=== PATIENT | male | born 1975 | race Caucasian/White ===

== ENCOUNTER 2016-08-28 15:57 | Inpatient (IN) | payer OTHER ==
[2016-08-28 18:05] VITALS: BMI 20.6
--- NOTE | 2016-08-28 18:43 | HP ---
[id number]: Allergies Allergy/AdvReac Type Severity Reaction Status Date / Time No Known Allergies Allergy Verified 08/28/16 18:18 History of Present Illness: 40 YEARS OLD MALE WITH LONG HISTORY OF ALCOHOL PCP NICOTINE DEPENDENCE DENIES MEDICAL DENIES PSYCHIATRIC IS ADMITTED TO REHAB Exam Limitations: No Limitations - Ebola screening Have you traveled outside of the country in the last 21 days: No Have you had contact with anyone from an Ebola affected area: No Have you been sick,other than usual withdrawal symptoms: No Do you have a fever: No - Review of Systems Constitutional: Chills, Changes in sleep, Weight Stable EENT: reports: No Symptoms Reported Respiratory: reports: No Symptoms reported Cardiac: reports: No Symptoms Reported GI: reports: No Symptoms Reported : reports: No Symptoms Reported Musculoskeletal: reports: No Symptoms Reported Integumentary: reports: No Symptoms Reported Neuro: reports: No Symptoms reported Endocrine: reports: No Symptoms Reported Hematology: reports: No Symptoms Reported Psychiatric: reports: Judgement Intact, Orientated x3, Depressed Other Systems: Reviewed and Negative Patient History - Patient Medical History Hx Anemia: No Hx Asthma: No Hx Chronic Obstructive Pulmonary Disease (COPD): No Hx Cancer: No Hx Cardiac Disorders: No Hx Congestive Heart Failure: No Hx Hypertension: No Hx Pacemaker: No HX Cerebrovascular Accident: No Hx Seizures: No Hx Dementia: No Hx Diabetes: No Hx Gastrointestinal Disorders: No Hx Liver Disease: No Hx Genitourinary Disorders: No Hx Sexually Transmitted Disorders: No Hx Renal Disease (ESRD): No Hx Thyroid Disease: No Hx Human Immunodeficiency Virus (HIV): No Hx Hepatitis C: Yes Hx Depression: Yes Hx Suicide Attempt: No Hx Bipolar Disorder: No Hx Schizophrenia: No - Patient Surgical History Past Surgical History: No - PPD History Previous Implant?: Yes Documented Results: Negative w/o proof Implanted On Prior [facility] Admission?: No PPD to be Administered?: Yes - Smoking Cessation Smoking history: Current every day smoker Have you smoked in the past 12 months: Yes Aproximately how many cigarettes per day: 10 Cigars Per Day: 0 Hx Chewing Tobacco Use: No Initiated information on smoking cessation: Yes 'Breaking Loose' booklet given: 08/28/16 - Substance & Tx. History Hx Alcohol Use: Yes Hx Substance Use: No Substance Use Type: Alcohol Hx Substance Use Treatment: Yes - Substances Abused Alcohol Route: Oral Frequency: Daily Amount used: [id number] BEER Age of first use: 13 Date of Last Use: 08/19/16 PCP Route: Smoking Frequency: 1-3 times last 30 days Amount used: 1 "dip" Age of first use: 18 Date of Last Use: 08/19/16 Family Disease History - Family Disease History Family Disease History: CA: Mother (), Other: Father (HEPATITIS ) Admission Physical Exam [facility] - Vital Signs Vital Signs: Vital Signs - 24 hr 08/28/16 18:04 Temperature 97.7 F Pulse Rate 81 Respiratory 18 Rate Blood Pressure 123/74 - Physical General Appearance: Yes: No Apparent Distress, Appropriately Dressed, Thin HEENTM: Yes: Hearing grossly Normal, Normal ENT Inspection, Normocephalic, Normal Voice Respiratory: Yes: Chest Non-Tender, Lungs Clear, Normal Breath Sounds, No Respiratory Distress, No Accessory Muscle Use Neck: Yes: Supple, Trachea in good position Breast: Yes: Breasts Symetrical Cardiology: Yes: Regular Rhythm, Regular Rate, S1, S2 Abdominal: Yes: Non Tender, Soft Genitourinary: Yes: Within Normal Limits Back: Yes: Normal Inspection Musculoskeletal: Yes: full range of Motion, Gait Steady Extremities: Yes: Normal Inspection, Normal Range of Motion, Non-Tender Neurological: Yes: Fully Oriented, Alert, Motor Strength 5/5, Normal Response, Depressed Affect Integumentary: Yes: Warm Lymphatic: Yes: Within Normal Limits - Diagnostic (1) Alcohol dependence with uncomplicated withdrawal Current Visit: Yes Status: Acute (2) PCP dependence Current Visit: Yes Status: Chronic (3) Nicotine dependence Current Visit: Yes Status: Acute Qualifiers: Nicotine product type: cigarettes Substance use status: in withdrawal Qualified Code(s): F17.213 - Nicotine dependence, cigarettes, with withdrawal (4) Hepatitis C antibody test positive Current Visit: Yes Status: Chronic Comment: SCHEDULE TO TREAT (5) Depression (emotion) Current Visit: Yes Status: Suspected Qualifiers: Depression Type: dysthymia Qualified Code(s): F34.1 - Dysthymic disorder Cleared for Admission [facility] - Detox or Rehab [facility] Level of Care: Observation Bed Detox Regimen/Protocol: Not Applicable Claeared for Rehab Admission: Yes [facility] Breath Alcohol Content Breath Alcohol Content: 0 Urine Drug Screen - Results Drug Screen Negative: No Urine Drug Screen Results: BZO-Benzodiazepines
[2016-08-28] MEDS ORDERED: P-EPHED 60MG/TRIPROLIDI 2.5MG TABLET PO PRN (18:46)
[2016-08-28] MEDS ORDERED: MAGNESIUM HYDROX 2400MG/30ML ORAL SUSPENSION 30 ML CUP PO PRN (18:46)
[2016-08-28] MEDS ORDERED: MAGNESIUM CITRATE 300 ML BOTTLE PO PRN (18:46)
[2016-08-28] MEDS ORDERED: MENTHOL/PHENOL 1 EACH UD MM PRN (18:46)
[2016-08-28] MEDS ORDERED: MAG HYDROX/AL HYDROX/SIMETH 30 ML UNIT-DOSE CUP PO PRN (18:46)
[2016-08-28] MEDS ORDERED: guaiFENesin/D-METHORPHAN HB 10 ML UNIT-DOSE CUPS PO PRN (18:46)
[2016-08-28] MEDS ORDERED: ACETAMINOPHEN 325 MG TABLET (FP) PO PRN (18:46)
[2016-08-28] MEDS ORDERED: LOPERAMIDE HCL 2 MG CAPSULE PO PRN (18:46)
[2016-08-28] MEDS: THIAMINE HCL 100 MG TABLET (FP) PO SCH (22:21)
[2016-08-28] MEDS: diphenhydrAMINE HCL 50 MG CAPSULE PO PRN (22:21)
[2016-08-28] MEDS: NICOTINE POLACRILEX 2 MG GUM BC PRN (22:23)
[2016-08-29] MEDS: IBUPROFEN 400 MG TABLET (FP) PO PRN (06:13)
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
--- NOTE | 2016-08-29 08:24 | EKG ---
Test Reason : Blood Pressure : / mmHG Vent. Rate : 074 BPM Atrial Rate : 074 BPM P-R Int : 130 ms QRS Dur : 084 ms QT Int : 388 ms P-R-T Axes : 084 056 046 degrees QTc Int : 430 ms NORMAL SINUS RHYTHM POSSIBLE LEFT ATRIAL ENLARGEMENT SEPTAL INFARCT , AGE UNDETERMINED ABNORMAL ECG NO PREVIOUS ECGS AVAILABLE Confirmed by ERIK VARGAS MD ([id number]) on 08/29/2016 8:24:25 AM Referred By: Confirmed By:ERIK VARGAS MD
[2016-08-29] MEDS: PRENATAL VITAMINS W/ FOLIC ACID TABLET (FP) PO SCH (10:00)
[2016-08-29] MEDS: NICOTINE 14 MG/24 HOURS TOPICAL PATCH TD SCH (10:01)
[2016-08-29 10:19] LABS: URINE APPEARANCE CLEAR; URINE BILIRUBIN NEGATIVE (NEGATIVE); URINE BLOOD NEGATIVE (NEGATIVE); URINE COLOR YELLOW; URINE GLUCOSE (UA) NEGATIVE (NEGATIVE); URINE KETONE NEGATIVE (NEGATIVE); URINE LEUK ESTERASE NEGATIVE (NEGATIVE); URINE NITRITE NEGATIVE (NEGATIVE); URINE PROTEIN NEGATIVE (NEGATIVE); URINE UROBILINOGEN NEGATIVE E.U./dl (0.2-1.0)
[2016-08-29] MEDS: diphenhydrAMINE HCL 50 MG CAPSULE PO PRN ×2 (21:02→23:36)
[2016-08-29] MEDS: THIAMINE HCL 100 MG TABLET (FP) PO SCH (21:02)
[2016-08-30] MEDS: PRENATAL VITAMINS W/ FOLIC ACID TABLET (FP) PO SCH (10:00)
[2016-08-30] MEDS: IBUPROFEN 400 MG TABLET (FP) PO PRN (10:00)
[2016-08-30] MEDS: NICOTINE 14 MG/24 HOURS TOPICAL PATCH TD SCH (10:00)
[2016-08-30] MEDS: hydrOXYzine PAMOATE 50 MG CAPSULE (FP) PO PRN (21:09)
[2016-08-30] MEDS: THIAMINE HCL 100 MG TABLET (FP) PO SCH (21:09)
[2016-08-30] MEDS: NICOTINE POLACRILEX 2 MG GUM BC PRN (21:41)
[2016-08-31] MEDS: NICOTINE POLACRILEX 2 MG GUM BC PRN (06:40)
[2016-08-31] MEDS: PRENATAL VITAMINS W/ FOLIC ACID TABLET (FP) PO SCH (09:56)
[2016-08-31] MEDS: NICOTINE 14 MG/24 HOURS TOPICAL PATCH TD SCH (09:56)
[2016-08-31] MEDS: IBUPROFEN 400 MG TABLET (FP) PO PRN ×2 (11:06→23:34)
[2016-08-31] MEDS: hydrOXYzine PAMOATE 50 MG CAPSULE (FP) PO PRN ×2 (17:57→21:37)
[2016-08-31] MEDS: THIAMINE HCL 100 MG TABLET (FP) PO SCH (21:37)
[2016-09-01] MEDS: PRENATAL VITAMINS W/ FOLIC ACID TABLET (FP) PO SCH (10:01)
[2016-09-01] MEDS: NICOTINE 14 MG/24 HOURS TOPICAL PATCH TD SCH (10:02)
[2016-09-01] MEDS: hydrOXYzine PAMOATE 50 MG CAPSULE (FP) PO PRN ×4 (10:02→22:27)
[2016-09-01] MEDS: IBUPROFEN 400 MG TABLET (FP) PO PRN (14:06)
[2016-09-01] MEDS: THIAMINE HCL 100 MG TABLET (FP) PO SCH (21:48)
[2016-09-01] MEDS: NICOTINE POLACRILEX 2 MG GUM BC PRN (22:27)
[2016-09-02] MEDS: hydrOXYzine PAMOATE 50 MG CAPSULE (FP) PO PRN ×4 (10:01→22:25)
[2016-09-02] MEDS: IBUPROFEN 400 MG TABLET (FP) PO PRN ×2 (10:01→21:36)
[2016-09-02] MEDS: PRENATAL VITAMINS W/ FOLIC ACID TABLET (FP) PO SCH (10:01)
[2016-09-02] MEDS: NICOTINE 14 MG/24 HOURS TOPICAL PATCH TD SCH (10:04)
[2016-09-02] MEDS: diphenhydrAMINE HCL 50 MG CAPSULE PO PRN (21:35)
[2016-09-02] MEDS: THIAMINE HCL 100 MG TABLET (FP) PO SCH (21:37)
[2016-09-03] MEDS: hydrOXYzine PAMOATE 50 MG CAPSULE (FP) PO PRN ×2 (09:43→21:19)
[2016-09-03] MEDS: IBUPROFEN 400 MG TABLET (FP) PO PRN ×2 (09:43→17:02)
[2016-09-03] MEDS: NICOTINE 14 MG/24 HOURS TOPICAL PATCH TD SCH (09:44)
[2016-09-03] MEDS: PRENATAL VITAMINS W/ FOLIC ACID TABLET (FP) PO SCH (09:44)
--- NOTE | 2016-09-03 10:40 | PN ---
Psychiatric Progress Note Vital Signs: Vital Signs Period Temp Pulse Resp BP Sys/Tom Pulse Ox Last 24 Hr 97.3 F 78 18-18 102/66 Date of Session: 09/03/16 Chief Complaint:: Insomnia HPI: Patient addressing Alcohol and Phencyclidine Dependence comorbid with Nicotine Dependence and Substance-induced Sleep Disorder ROS: Hepatitis C Current Medications: Active Medications Generic Name Dose Route Start Last Admin Trade Name Freq PRN Reason Stop Dose Admin Acetaminophen 650 mg 08/28/16 18:46 Tylenol - PO Q4H PRN PAIN Al Hydroxide/Mg Hydroxide 30 ml 08/28/16 18:46 Mylanta Oral Suspension - PO Q6H PRN DYSPEPSIA Diphenhydramine HCl 50 mg 08/28/16 18:46 09/02/16 21:35 Benadryl - PO 50 mg HSMR1 PRN Administration INSOMNIA Eucalyptus/Menthol/Phenol/Sorbitol 1 each 08/28/16 18:46 Cepastat Lozenge - MM Q4H PRN SORE THROAT Guaifenesin 10 ml 08/28/16 18:46 Robitussin Dm - PO Q6H PRN COUGH Hydroxyzine Pamoate 50 mg 08/28/16 18:46 09/03/16 09:43 Vistaril - PO 50 mg Q4H PRN Administration AGITATION Ibuprofen 400 mg 08/28/16 18:46 09/03/16 09:43 Motrin - PO 400 mg Q6H PRN Administration SEVERE PAIN Loperamide HCl 4 mg 08/28/16 18:46 Imodium - PO Q6H PRN DIARRHEA Magnesium Citrate 300 ml 08/28/16 18:46 Citroma - PO Q48H PRN CONSTIPATION Magnesium Hydroxide 30 ml 08/28/16 18:46 Milk Of Magnesia - PO DAILY PRN CONSTIPATION Nicotine 14 mg 08/29/16 10:00 09/03/16 09:44 Nicoderm Patch - TD 14 mg DAILY [place] Administration Nicotine Polacrilex 2 mg 08/28/16 18:46 09/01/16 22:27 Nicorette Gum - BC 2 mg Q2H PRN Administration NICOTINE REPLACEMENT RX Multivit/Folic Acid/Iron 1 tab 08/29/16 10:00 09/03/16 09:44 Vitamins ([facility]) - PO 1 tab DAILY [place] Administration Pseudoephedrine/Triprolidine 1 combo 08/28/16 18:46 Actifed - PO TID PRN NASAL CONGESTION Thiamine HCl 100 mg 08/28/16 22:00 09/02/16 21:37 Vitamin B1 - PO 100 mg HS [place] Administration Trazodone HCl 100 mg 09/03/16 22:00 Desyrel - PO HS [facility] Medication(s) Change(s): Start Trazadone 100 mg po HS Current Side Effect: No Lab tests ordered: Yes Lab tests reviewed: Yes Provider note:: Patient reports experiencing difficulty to sleep. 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 Requests to be order Trazadone to which he responded well in the past Total face to face time:: 25 Mental Status Exam - Mental Status Exam Alert and Oriented to: Time, Place, Person Cognitive Function: Fair Patient Appearance: Well Groomed Mood: Hopeful, Euthymic Affect: Appropriate Patient Behavior: Cooperative Speech Pattern: Clear Voice Loudness: Normal Thought Process: Intact Thought Disorder: Not Present Hallucinations: Denies Suicidal Ideation: Denies Homicidal Ideation: Denies Insight/Judgement: Fair Sleep: Poorly Appetite: Good Muscle strength/Tone: Normal Gait/Station: Normal Psychiatric Treatment Plan - Problem List (1) Alcohol dependence with uncomplicated withdrawal Current Visit: Yes (2) Nicotine dependence Current Visit: Yes Qualifiers: Nicotine product type: cigarettes Substance use status: in withdrawal Qualified Code(s): F17.213 - Nicotine dependence, cigarettes, with withdrawal (3) Substance-induced sleep disorder Current Visit: Yes (4) Hepatitis C antibody test positive Current Visit: Yes Comment: SCHEDULE TO TREAT (5) PCP abuse Current Visit: Yes Initial treatment plan: 1) Start Trazadone 100 mg po HS for insomnia. 2) Monitor progress
[2016-09-03] MEDS: THIAMINE HCL 100 MG TABLET (FP) PO SCH (21:18)
[2016-09-03] MEDS: traZODone HCL 100 MG TABLET (FP) PO SCH (21:18)
[2016-09-03] MEDS: NICOTINE POLACRILEX 2 MG GUM BC PRN (21:18)
[2016-09-04] MEDS: NICOTINE POLACRILEX 2 MG GUM BC PRN ×2 (06:31→21:06)
[2016-09-04] MEDS: hydrOXYzine PAMOATE 50 MG CAPSULE (FP) PO PRN ×3 (10:07→21:06)
[2016-09-04] MEDS: IBUPROFEN 400 MG TABLET (FP) PO PRN (10:07)
[2016-09-04] MEDS: NICOTINE 14 MG/24 HOURS TOPICAL PATCH TD SCH (10:08)
[2016-09-04] MEDS: PRENATAL VITAMINS W/ FOLIC ACID TABLET (FP) PO SCH (10:09)
[2016-09-04] MEDS: traZODone HCL 100 MG TABLET (FP) PO SCH (21:06)
[2016-09-04] MEDS: THIAMINE HCL 100 MG TABLET (FP) PO SCH (21:06)
[2016-09-05] MEDS: IBUPROFEN 400 MG TABLET (FP) PO PRN ×2 (06:36→15:24)
[2016-09-05] MEDS: NICOTINE POLACRILEX 2 MG GUM BC PRN ×2 (06:37→21:25)
[2016-09-05] MEDS: hydrOXYzine PAMOATE 50 MG CAPSULE (FP) PO PRN ×4 (06:37→21:25)
[2016-09-05] MEDS: NICOTINE 14 MG/24 HOURS TOPICAL PATCH TD SCH (09:49)
[2016-09-05] MEDS: PRENATAL VITAMINS W/ FOLIC ACID TABLET (FP) PO SCH (09:49)
[2016-09-05] MEDS: traZODone HCL 100 MG TABLET (FP) PO SCH (21:24)
[2016-09-05] MEDS: THIAMINE HCL 100 MG TABLET (FP) PO SCH (21:24)
[2016-09-06] MEDS: NICOTINE 14 MG/24 HOURS TOPICAL PATCH TD SCH (09:58)
[2016-09-06] MEDS: PRENATAL VITAMINS W/ FOLIC ACID TABLET (FP) PO SCH (09:58)
[2016-09-06] MEDS: hydrOXYzine PAMOATE 50 MG CAPSULE (FP) PO PRN (09:59)
[2016-09-06] MEDS: NICOTINE POLACRILEX 2 MG GUM BC PRN (09:59)
[2016-09-06] MEDS: IBUPROFEN 400 MG TABLET (FP) PO PRN (12:46)
[2016-09-06] MEDS ORDERED: PT OWN MED DRAWER 7, Y5N ONE ×2 (12:49→21:10)
--- NOTE | 2016-09-06 13:36 | PN ---
[facility] Progress Note (SOAP) Subjective: left nostril greenish d/c x 2 days assoc with frontal headache Objective: 09/06/16 13:34 Vital Signs Temperature 97 F L 09/06/16 06:44 Pulse Rate 82 09/06/16 06:44 Respiratory Rate 18 09/06/16 06:44 Blood Pressure 115/68 09/06/16 06:44 O2 Sat by Pulse Oximetry (%) Laboratory Tests 08/29/16 07:00 Urine Color Yellow Urine Appearance Clear Urine pH 6.0 Ur Specific Benjamin 1.023 Urine Protein Negative Urine Glucose (UA) Negative Urine Ketones Negative Urine Blood Negative Urine Nitrite Negative Urine Bilirubin Negative Urine Urobilinogen Negative Ur Leukocyte Esterase Negative ptaox3 in nad ambulating + tenderness left maxaillary sinus , greenish d/c Assessment: 09/06/16 13:35 sinusitis Plan: bactrim ds bid ocean spray motrin pr
[2016-09-06] MEDS: SODIUM CHLORIDE NASAL SPRAY 44 ML BOTTLE NS PRN ×2 (14:37→21:09)
[2016-09-06] MEDS: diphenhydrAMINE HCL 50 MG CAPSULE PO PRN (21:09)
[2016-09-06] MEDS: THIAMINE HCL 100 MG TABLET (FP) PO SCH (21:09)
[2016-09-06] MEDS: traZODone HCL 100 MG TABLET (FP) PO SCH (21:09)
[2016-09-06] MEDS: SULFAMETHOXAZOLE/TRIMETHOPRIM 800MG/160MG D.S. TABLET PO SCH (21:10)
[2016-09-07] MEDS: SODIUM CHLORIDE NASAL SPRAY 44 ML BOTTLE NS PRN ×3 (06:44→21:24)
[2016-09-07] MEDS: hydrOXYzine PAMOATE 50 MG CAPSULE (FP) PO PRN ×2 (06:44→10:08)
[2016-09-07] MEDS: NICOTINE POLACRILEX 2 MG GUM BC PRN (06:44)
[2016-09-07] MEDS: NICOTINE 14 MG/24 HOURS TOPICAL PATCH TD SCH (10:07)
[2016-09-07] MEDS: SULFAMETHOXAZOLE/TRIMETHOPRIM 800MG/160MG D.S. TABLET PO SCH ×2 (10:10→21:24)
[2016-09-07] MEDS: PRENATAL VITAMINS W/ FOLIC ACID TABLET (FP) PO SCH (10:10)
[2016-09-07] MEDS: IBUPROFEN 400 MG TABLET (FP) PO PRN ×2 (12:42→21:22)
[2016-09-07] MEDS: traZODone HCL 100 MG TABLET (FP) PO SCH (21:23)
[2016-09-07] MEDS: diphenhydrAMINE HCL 50 MG CAPSULE PO PRN (21:23)
[2016-09-07] MEDS: THIAMINE HCL 100 MG TABLET (FP) PO SCH (21:23)
[2016-09-08] MEDS: NICOTINE 14 MG/24 HOURS TOPICAL PATCH TD SCH (10:05)
[2016-09-08] MEDS: SULFAMETHOXAZOLE/TRIMETHOPRIM 800MG/160MG D.S. TABLET PO SCH ×2 (10:05→22:20)
[2016-09-08] MEDS: PRENATAL VITAMINS W/ FOLIC ACID TABLET (FP) PO SCH (10:06)
[2016-09-08] MEDS: SODIUM CHLORIDE NASAL SPRAY 44 ML BOTTLE NS PRN ×2 (10:06→21:07)
[2016-09-08] MEDS: hydrOXYzine PAMOATE 50 MG CAPSULE (FP) PO PRN (10:07)
[2016-09-08] MEDS: NICOTINE POLACRILEX 2 MG GUM BC PRN ×2 (10:09→21:09)
[2016-09-08] MEDS: IBUPROFEN 400 MG TABLET (FP) PO PRN ×2 (12:45→21:08)
[2016-09-08] MEDS ORDERED: PT OWN MED DRAWER 7, Y5N ONE (21:07)
[2016-09-08] MEDS: diphenhydrAMINE HCL 50 MG CAPSULE PO PRN (21:07)
[2016-09-08] MEDS: traZODone HCL 100 MG TABLET (FP) PO SCH (21:07)
[2016-09-08] MEDS: THIAMINE HCL 100 MG TABLET (FP) PO SCH (21:07)
[2016-09-09] MEDS: SULFAMETHOXAZOLE/TRIMETHOPRIM 800MG/160MG D.S. TABLET PO SCH ×2 (09:56→23:00)
[2016-09-09] MEDS: PRENATAL VITAMINS W/ FOLIC ACID TABLET (FP) PO SCH (09:56)
[2016-09-09] MEDS: NICOTINE 14 MG/24 HOURS TOPICAL PATCH TD SCH (09:56)
[2016-09-09] MEDS: hydrOXYzine PAMOATE 50 MG CAPSULE (FP) PO PRN ×2 (09:57→13:53)
[2016-09-09] MEDS: SODIUM CHLORIDE NASAL SPRAY 44 ML BOTTLE NS PRN ×3 (09:58→21:01)
[2016-09-09] MEDS ORDERED: PT OWN MED DRAWER 7, Y5N ONE ×2 (13:52→21:02)
[2016-09-09] MEDS: diphenhydrAMINE HCL 50 MG CAPSULE PO PRN (21:00)
[2016-09-09] MEDS: traZODone HCL 100 MG TABLET (FP) PO SCH (21:00)
[2016-09-09] MEDS: THIAMINE HCL 100 MG TABLET (FP) PO SCH (21:00)
[2016-09-09] MEDS: NICOTINE POLACRILEX 2 MG GUM BC PRN (21:01)
[2016-09-10] MEDS: SODIUM CHLORIDE NASAL SPRAY 44 ML BOTTLE NS PRN ×3 (07:16→21:22)
[2016-09-10] MEDS: hydrOXYzine PAMOATE 50 MG CAPSULE (FP) PO PRN ×2 (07:16→15:53)
[2016-09-10] MEDS: NICOTINE POLACRILEX 2 MG GUM BC PRN ×2 (07:16→10:14)
[2016-09-10] MEDS: NICOTINE 14 MG/24 HOURS TOPICAL PATCH TD SCH (10:11)
[2016-09-10] MEDS: PRENATAL VITAMINS W/ FOLIC ACID TABLET (FP) PO SCH (10:11)
[2016-09-10] MEDS: SULFAMETHOXAZOLE/TRIMETHOPRIM 800MG/160MG D.S. TABLET PO SCH ×2 (10:12→21:21)
[2016-09-10] MEDS ORDERED: PT OWN MED DRAWER 7, Y5N ONE ×2 (10:12→21:21)
[2016-09-10] MEDS: IBUPROFEN 400 MG TABLET (FP) PO PRN (15:53)
[2016-09-10] MEDS: THIAMINE HCL 100 MG TABLET (FP) PO SCH (21:22)
[2016-09-10] MEDS: diphenhydrAMINE HCL 50 MG CAPSULE PO PRN (21:22)
[2016-09-10] MEDS: traZODone HCL 100 MG TABLET (FP) PO SCH (21:22)
[2016-09-11] MEDS: hydrOXYzine PAMOATE 50 MG CAPSULE (FP) PO PRN ×2 (09:58→17:41)
[2016-09-11] MEDS: PRENATAL VITAMINS W/ FOLIC ACID TABLET (FP) PO SCH (09:59)
[2016-09-11] MEDS: SODIUM CHLORIDE NASAL SPRAY 44 ML BOTTLE NS PRN ×2 (09:59→21:37)
[2016-09-11] MEDS: NICOTINE POLACRILEX 2 MG GUM BC PRN ×2 (09:59→17:41)
[2016-09-11] MEDS: SULFAMETHOXAZOLE/TRIMETHOPRIM 800MG/160MG D.S. TABLET PO SCH ×2 (09:59→23:39)
[2016-09-11] MEDS: NICOTINE 14 MG/24 HOURS TOPICAL PATCH TD SCH (10:00)
[2016-09-11] MEDS: IBUPROFEN 400 MG TABLET (FP) PO PRN (17:41)
[2016-09-11] MEDS: THIAMINE HCL 100 MG TABLET (FP) PO SCH (21:37)
[2016-09-11] MEDS: traZODone HCL 100 MG TABLET (FP) PO SCH (21:37)
[2016-09-11] MEDS: diphenhydrAMINE HCL 50 MG CAPSULE PO PRN (21:37)
[2016-09-11] MEDS ORDERED: PT OWN MED DRAWER 7, Y5N ONE (21:38)
[2016-09-12] MEDS: SODIUM CHLORIDE NASAL SPRAY 44 ML BOTTLE NS PRN ×3 (07:23→21:23)
[2016-09-12] MEDS: NICOTINE POLACRILEX 2 MG GUM BC PRN ×2 (07:24→09:49)
[2016-09-12] MEDS: hydrOXYzine PAMOATE 50 MG CAPSULE (FP) PO PRN (07:24)
[2016-09-12] MEDS: PRENATAL VITAMINS W/ FOLIC ACID TABLET (FP) PO SCH (09:48)
[2016-09-12] MEDS: IBUPROFEN 400 MG TABLET (FP) PO PRN ×2 (09:48→21:24)
[2016-09-12] MEDS: NICOTINE 14 MG/24 HOURS TOPICAL PATCH TD SCH (09:48)
[2016-09-12] MEDS: SULFAMETHOXAZOLE/TRIMETHOPRIM 800MG/160MG D.S. TABLET PO SCH ×2 (09:48→22:13)
[2016-09-12] MEDS ORDERED: PT OWN MED DRAWER 7, Y5N ONE (21:23)
[2016-09-12] MEDS: diphenhydrAMINE HCL 50 MG CAPSULE PO PRN (21:23)
[2016-09-12] MEDS: THIAMINE HCL 100 MG TABLET (FP) PO SCH (21:23)
[2016-09-12] MEDS: traZODone HCL 100 MG TABLET (FP) PO SCH (21:23)
[2016-09-13] MEDS: hydrOXYzine PAMOATE 50 MG CAPSULE (FP) PO PRN ×2 (09:49→17:55)
[2016-09-13] MEDS: PRENATAL VITAMINS W/ FOLIC ACID TABLET (FP) PO SCH (09:49)
[2016-09-13] MEDS: IBUPROFEN 400 MG TABLET (FP) PO PRN (09:49)
[2016-09-13] MEDS: SODIUM CHLORIDE NASAL SPRAY 44 ML BOTTLE NS PRN ×2 (09:50→21:08)
[2016-09-13] MEDS: NICOTINE POLACRILEX 2 MG GUM BC PRN ×2 (09:50→17:56)
[2016-09-13] MEDS: NICOTINE 14 MG/24 HOURS TOPICAL PATCH TD SCH (09:51)
[2016-09-13] MEDS: SULFAMETHOXAZOLE/TRIMETHOPRIM 800MG/160MG D.S. TABLET PO SCH (09:51)
[2016-09-13] MEDS: diphenhydrAMINE HCL 50 MG CAPSULE PO PRN (21:07)
[2016-09-13] MEDS: traZODone HCL 100 MG TABLET (FP) PO SCH (21:07)
[2016-09-13] MEDS: THIAMINE HCL 100 MG TABLET (FP) PO SCH (21:07)
[2016-09-13] MEDS ORDERED: PT OWN MED DRAWER 7, Y5N ONE (21:08)
[2016-09-14] MEDS: hydrOXYzine PAMOATE 50 MG CAPSULE (FP) PO PRN ×2 (06:59→17:42)
[2016-09-14] MEDS: SODIUM CHLORIDE NASAL SPRAY 44 ML BOTTLE NS PRN (06:59)
[2016-09-14] MEDS: NICOTINE 14 MG/24 HOURS TOPICAL PATCH TD SCH (10:20)
[2016-09-14] MEDS: PRENATAL VITAMINS W/ FOLIC ACID TABLET (FP) PO SCH (10:20)
[2016-09-14] MEDS: IBUPROFEN 400 MG TABLET (FP) PO PRN (17:42)
[2016-09-14] MEDS: diphenhydrAMINE HCL 50 MG CAPSULE PO PRN (21:18)
[2016-09-14] MEDS: traZODone HCL 100 MG TABLET (FP) PO SCH (21:18)
[2016-09-14] MEDS: THIAMINE HCL 100 MG TABLET (FP) PO SCH (21:18)
[2016-09-15] MEDS: SODIUM CHLORIDE NASAL SPRAY 44 ML BOTTLE NS PRN ×2 (09:57→21:16)
[2016-09-15] MEDS: hydrOXYzine PAMOATE 50 MG CAPSULE (FP) PO PRN (09:58)
[2016-09-15] MEDS: PRENATAL VITAMINS W/ FOLIC ACID TABLET (FP) PO SCH (09:58)
[2016-09-15] MEDS: NICOTINE 14 MG/24 HOURS TOPICAL PATCH TD SCH (09:59)
[2016-09-15] MEDS: NICOTINE POLACRILEX 2 MG GUM BC PRN ×2 (09:59→21:17)
[2016-09-15] MEDS: diphenhydrAMINE HCL 50 MG CAPSULE PO PRN (21:16)
[2016-09-15] MEDS: THIAMINE HCL 100 MG TABLET (FP) PO SCH (21:16)
[2016-09-15] MEDS: traZODone HCL 100 MG TABLET (FP) PO SCH (21:16)
[2016-09-16] MEDS: hydrOXYzine PAMOATE 50 MG CAPSULE (FP) PO PRN ×3 (08:46→21:08)
[2016-09-16] MEDS: NICOTINE POLACRILEX 2 MG GUM BC PRN (08:47)
[2016-09-16] MEDS: PRENATAL VITAMINS W/ FOLIC ACID TABLET (FP) PO SCH (10:00)
[2016-09-16] MEDS: NICOTINE 14 MG/24 HOURS TOPICAL PATCH TD SCH (10:01)
[2016-09-16] MEDS: IBUPROFEN 400 MG TABLET (FP) PO PRN (15:56)
[2016-09-16] MEDS ORDERED: traZODone HCL 50 MG TABLET (FP) ONE (19:43)
[2016-09-16] MEDS: THIAMINE HCL 100 MG TABLET (FP) PO SCH (21:08)
[2016-09-16] MEDS: traZODone HCL 100 MG TABLET (FP) PO SCH (21:09)
[2016-09-16] MEDS: diphenhydrAMINE HCL 50 MG CAPSULE PO PRN (22:00)
[2016-09-17] MEDS: NICOTINE POLACRILEX 2 MG GUM BC PRN ×2 (08:52→20:28)
[2016-09-17] MEDS: IBUPROFEN 400 MG TABLET (FP) PO PRN ×2 (09:54→20:27)
[2016-09-17] MEDS: PRENATAL VITAMINS W/ FOLIC ACID TABLET (FP) PO SCH (09:54)
[2016-09-17] MEDS: NICOTINE 14 MG/24 HOURS TOPICAL PATCH TD SCH (09:55)
[2016-09-17] MEDS: hydrOXYzine PAMOATE 50 MG CAPSULE (FP) PO PRN (16:00)
[2016-09-17] MEDS: THIAMINE HCL 100 MG TABLET (FP) PO SCH (21:15)
[2016-09-17] MEDS: diphenhydrAMINE HCL 50 MG CAPSULE PO PRN ×2 (21:15→23:27)
[2016-09-17] MEDS: traZODone HCL 100 MG TABLET (FP) PO SCH (21:15)
[2016-09-18] MEDS: NICOTINE POLACRILEX 2 MG GUM BC PRN ×3 (07:27→21:11)
[2016-09-18] MEDS: hydrOXYzine PAMOATE 50 MG CAPSULE (FP) PO PRN (07:27)
[2016-09-18] MEDS: NICOTINE 14 MG/24 HOURS TOPICAL PATCH TD SCH (10:03)
[2016-09-18] MEDS: SODIUM CHLORIDE NASAL SPRAY 44 ML BOTTLE NS PRN (10:03)
[2016-09-18] MEDS: PRENATAL VITAMINS W/ FOLIC ACID TABLET (FP) PO SCH (10:03)
[2016-09-18] MEDS: IBUPROFEN 400 MG TABLET (FP) PO PRN ×2 (10:03→15:27)
[2016-09-18] MEDS: diphenhydrAMINE HCL 50 MG CAPSULE PO PRN ×2 (21:10→22:18)
[2016-09-18] MEDS: THIAMINE HCL 100 MG TABLET (FP) PO SCH (21:10)
[2016-09-18] MEDS: traZODone HCL 100 MG TABLET (FP) PO SCH (21:11)
[2016-09-19] MEDS: NICOTINE POLACRILEX 2 MG GUM BC PRN ×2 (06:39→12:37)
[2016-09-19] MEDS: hydrOXYzine PAMOATE 50 MG CAPSULE (FP) PO PRN ×2 (06:39→09:53)
[2016-09-19] MEDS: PRENATAL VITAMINS W/ FOLIC ACID TABLET (FP) PO SCH (09:52)
[2016-09-19] MEDS: IBUPROFEN 400 MG TABLET (FP) PO PRN (09:52)
[2016-09-19] MEDS: NICOTINE 14 MG/24 HOURS TOPICAL PATCH TD SCH (09:54)
[2016-09-19] MEDS ORDERED: COLLOIDAL OATMEAL 1 BAR EACH TP PRN (13:47)
[2016-09-19] MEDS ORDERED: PT OWN MED DRAWER 7, Y5N ONE ×2 (16:04→21:12)
[2016-09-19] MEDS: diphenhydrAMINE HCL 50 MG CAPSULE PO PRN ×2 (21:11→22:19)
[2016-09-19] MEDS: traZODone HCL 100 MG TABLET (FP) PO SCH (21:11)
[2016-09-19] MEDS: THIAMINE HCL 100 MG TABLET (FP) PO SCH (21:11)
[2016-09-19] MEDS: TETRAHYDROZOLINE HCL 1 DROP DROPS OS PRN (21:12)
[2016-09-20] MEDS: TETRAHYDROZOLINE HCL 1 DROP DROPS OS PRN ×2 (07:41→10:03)
[2016-09-20] MEDS: hydrOXYzine PAMOATE 50 MG CAPSULE (FP) PO PRN ×2 (07:42→14:29)
[2016-09-20] MEDS: NICOTINE POLACRILEX 2 MG GUM BC PRN (07:42)
[2016-09-20] MEDS: PRENATAL VITAMINS W/ FOLIC ACID TABLET (FP) PO SCH (10:03)
[2016-09-20] MEDS: NICOTINE 14 MG/24 HOURS TOPICAL PATCH TD SCH (10:04)
[2016-09-20] MEDS: diphenhydrAMINE HCL 50 MG CAPSULE PO PRN (21:00)
[2016-09-20] MEDS: traZODone HCL 100 MG TABLET (FP) PO SCH (21:00)
[2016-09-20] MEDS: THIAMINE HCL 100 MG TABLET (FP) PO SCH (21:00)
[2016-09-21] MEDS: hydrOXYzine PAMOATE 50 MG CAPSULE (FP) PO PRN (06:55)
[2016-09-21] MEDS: TETRAHYDROZOLINE HCL 1 DROP DROPS OS PRN ×3 (06:55→21:06)
[2016-09-21] MEDS: NICOTINE POLACRILEX 2 MG GUM BC PRN ×2 (06:56→21:06)
[2016-09-21] MEDS: PRENATAL VITAMINS W/ FOLIC ACID TABLET (FP) PO SCH (10:11)
[2016-09-21] MEDS: NICOTINE 14 MG/24 HOURS TOPICAL PATCH TD SCH (10:12)
[2016-09-21] MEDS: THIAMINE HCL 100 MG TABLET (FP) PO SCH (21:06)
[2016-09-21] MEDS: traZODone HCL 100 MG TABLET (FP) PO SCH (21:06)
[2016-09-21] MEDS: diphenhydrAMINE HCL 50 MG CAPSULE PO PRN (21:06)
[2016-09-22] MEDS: NICOTINE 14 MG/24 HOURS TOPICAL PATCH TD SCH (09:48)
[2016-09-22] MEDS: PRENATAL VITAMINS W/ FOLIC ACID TABLET (FP) PO SCH (09:48)
[2016-09-22] MEDS: TETRAHYDROZOLINE HCL 1 DROP DROPS OS PRN (09:49)
[2016-09-22] MEDS: hydrOXYzine PAMOATE 50 MG CAPSULE (FP) PO PRN (09:49)
[2016-09-22] MEDS ORDERED: PT OWN MED DRAWER 7, Y5N ONE (09:49)
[2016-09-22] MEDS: traZODone HCL 100 MG TABLET (FP) PO SCH (21:01)
[2016-09-22] MEDS: THIAMINE HCL 100 MG TABLET (FP) PO SCH (21:01)
[2016-09-22] MEDS: diphenhydrAMINE HCL 50 MG CAPSULE PO PRN (21:02)
[2016-09-22] MEDS: NICOTINE POLACRILEX 2 MG GUM BC PRN (21:02)
[2016-09-22] MEDS: IBUPROFEN 400 MG TABLET (FP) PO PRN (22:11)
[2016-09-23] MEDS: NICOTINE 14 MG/24 HOURS TOPICAL PATCH TD SCH (09:52)
[2016-09-23] MEDS: PRENATAL VITAMINS W/ FOLIC ACID TABLET (FP) PO SCH (09:52)
[2016-09-23] MEDS: TETRAHYDROZOLINE HCL 1 DROP DROPS OS PRN ×2 (09:53→13:14)
[2016-09-23] MEDS ORDERED: PT OWN MED DRAWER 7, Y5N ONE (09:53)
[2016-09-23] MEDS: NICOTINE POLACRILEX 2 MG GUM BC PRN ×2 (13:16→21:04)
[2016-09-23] MEDS: hydrOXYzine PAMOATE 50 MG CAPSULE (FP) PO PRN (13:38)
[2016-09-23] MEDS: diphenhydrAMINE HCL 50 MG CAPSULE PO PRN ×2 (21:03→22:05)
[2016-09-23] MEDS: traZODone HCL 100 MG TABLET (FP) PO SCH (21:03)
[2016-09-23] MEDS: THIAMINE HCL 100 MG TABLET (FP) PO SCH (21:03)
[2016-09-24] MEDS: NICOTINE POLACRILEX 2 MG GUM BC PRN (07:18)
[2016-09-24] MEDS: TETRAHYDROZOLINE HCL 1 DROP DROPS OS PRN ×2 (07:18→21:14)
[2016-09-24] MEDS: NICOTINE 14 MG/24 HOURS TOPICAL PATCH TD SCH (10:09)
[2016-09-24] MEDS: PRENATAL VITAMINS W/ FOLIC ACID TABLET (FP) PO SCH (10:09)
--- NOTE | 2016-09-24 12:14 | PN ---
Psychiatric Progress Note Vital Signs: Vital Signs Period Temp Pulse Resp BP Sys/Tom Pulse Ox Last 24 Hr 97.6 F 68 18-18 98/65 Date of Session: 09/24/16 Chief Complaint:: Discharge Note HPI: Patient addressing Alcohol and Phencyclidine Dependence comorbid with Nicotine Dependence and substance-Induced Sleep Disorder ROS: Hep C Current Medications: Active Medications Generic Name Dose Route Start Last Admin Trade Name Freq PRN Reason Stop Dose Admin Acetaminophen 650 mg 08/28/16 18:46 09/19/16 17:02 Tylenol - PO 650 mg Q4H PRN Administration PAIN Al Hydroxide/Mg Hydroxide 30 ml 08/28/16 18:46 Mylanta Oral Suspension - PO Q6H PRN DYSPEPSIA Colloidal Oatmeal 1 applic 09/19/16 13:47 09/19/16 21:12 Aveeno Soap - TP 1 applic DAILY PRN Administration HYGEINE Diphenhydramine HCl 50 mg 08/28/16 18:46 09/23/16 22:05 Benadryl - PO 50 mg HSMR1 PRN Administration INSOMNIA Eucalyptus/Menthol/Phenol/Sorbitol 1 each 08/28/16 18:46 Cepastat Lozenge - MM Q4H PRN SORE THROAT Guaifenesin 10 ml 08/28/16 18:46 Robitussin Dm - PO Q6H PRN COUGH Hydroxyzine Pamoate 50 mg 08/28/16 18:46 09/23/16 13:38 Vistaril - PO 50 mg Q4H PRN Administration AGITATION Ibuprofen 400 mg 08/28/16 18:46 09/22/16 22:11 Motrin - PO 400 mg Q6H PRN Administration SEVERE PAIN Loperamide HCl 4 mg 08/28/16 18:46 Imodium - PO Q6H PRN DIARRHEA Magnesium Citrate 300 ml 08/28/16 18:46 Citroma - PO Q48H PRN CONSTIPATION Magnesium Hydroxide 30 ml 08/28/16 18:46 Milk Of Magnesia - PO DAILY PRN CONSTIPATION Nicotine 14 mg 08/29/16 10:00 09/24/16 10:09 Nicoderm Patch - TD 14 mg DAILY [place] Administration Nicotine Polacrilex 2 mg 08/28/16 18:46 09/24/16 07:18 Nicorette Gum - BC 2 mg Q2H PRN Administration NICOTINE REPLACEMENT RX Multivit/Folic Acid/Iron 1 tab 08/29/16 10:00 09/24/16 10:09 Vitamins ([facility]) - PO 1 tab DAILY [place] Administration Pseudoephedrine/Triprolidine 1 combo 08/28/16 18:46 Actifed - PO TID PRN NASAL CONGESTION Sodium Chloride 2 spray 09/06/16 13:37 09/18/16 10:03 Wineglass [place] Nasal [place] - NS 2 spray TID PRN Administration NASAL CONGESTION Tetrahydrozoline HCl 1 drop 09/19/16 13:47 09/24/16 07:18 Visine - OS 1 drop BID PRN Administration DRY SKIN Thiamine HCl 100 mg 08/28/16 22:00 09/23/16 21:03 Vitamin B1 - PO 100 mg HS [place] Administration Trazodone HCl 100 mg 09/03/16 22:00 09/23/16 21:03 Desyrel - PO 100 mg HS [place] Administration Current Side Effect: No Lab tests ordered: Yes Lab tests reviewed: Yes Provider note:: Patient will complete this program on 09/25/16. He has met his treatment goals and will continue to address his issues in outpatient treatment at [facility]. He verbalized understanding the negative consequences of his addiction and from his participation in this program, he has learned to recognize the need for significant changes in his life style. He responded well to Trazadone 100 mg po HS for insomnia. Script for that medication bebeto be electronically transmitted to [facility]. He is stable for discharge on 09/25/16 Total face to face time:: 35 Mental Status Exam - Mental Status Exam Alert and Oriented to: Time, Place, Person Cognitive Function: Fair Patient Appearance: Well Groomed Mood: Hopeful, Euthymic Affect: Appropriate Patient Behavior: Cooperative Speech Pattern: Clear Voice Loudness: Normal Thought Process: Intact Thought Disorder: Not Present Hallucinations: Denies Suicidal Ideation: Denies Homicidal Ideation: Denies Insight/Judgement: Fair Sleep: Fair Appetite: Good Muscle strength/Tone: Normal Gait/Station: Normal Psychiatric Treatment Plan - Problem List (1) Alcohol dependence with uncomplicated withdrawal Current Visit: Yes (2) Nicotine dependence Current Visit: Yes Qualifiers: Nicotine product type: cigarettes Substance use status: in withdrawal Qualified Code(s): F17.213 - Nicotine dependence, cigarettes, with withdrawal (3) Substance-induced sleep disorder Current Visit: Yes (4) Hepatitis C antibody test positive Current Visit: Yes Comment: SCHEDULE TO TREAT (5) PCP abuse Current Visit: Yes Initial treatment plan: Patient will be discharged tomorrow and referred [facility] for outpatient treatment
[2016-09-24] MEDS: THIAMINE HCL 100 MG TABLET (FP) PO SCH (21:12)
[2016-09-24] MEDS: diphenhydrAMINE HCL 50 MG CAPSULE PO PRN (21:13)
[2016-09-24] MEDS: traZODone HCL 100 MG TABLET (FP) PO SCH (21:13)
[2016-09-25 06:47] VITALS: BP 104/69; PULSE 80; TEMP 97.7
[2016-09-25] MEDS: hydrOXYzine PAMOATE 50 MG CAPSULE (FP) PO PRN (07:45)
[2016-09-25] MEDS: TETRAHYDROZOLINE HCL 1 DROP DROPS OS PRN ×2 (07:45→09:39)
[2016-09-25] MEDS: NICOTINE POLACRILEX 2 MG GUM BC PRN (07:46)
[2016-09-25] MEDS: NICOTINE 14 MG/24 HOURS TOPICAL PATCH TD SCH (09:39)
[2016-09-25] MEDS: PRENATAL VITAMINS W/ FOLIC ACID TABLET (FP) PO SCH (09:39)
[2016-09-25] MEDS ORDERED: PT OWN MED DRAWER 7, Y5N ONE (09:42)
== END 2016-09-25 10:15 | disposition home or self-care (01) | DRG 772 ==
LOC: YASAS 15:57 → Y3W 19:37
PROVIDERS: ADMIT Psychiatry & Neurology Psychiatry; ATTEND Psychiatry & Neurology Psychiatry
PROC: HZ42ZZZ Group Counseling for Substance Abuse Treatment, Cognitive-Behavioral (ICD-10-PCS; principal; 2016-08-28)
DX: F10.20 Alcohol dependence, uncomplicated (principal); F16.10 Hallucinogen abuse, uncomplicated; F17.213 Nicotine dependence, cigarettes, with withdrawal; F19.282 Other psychoactive substance dependence with psychoactive substance-induced sleep disorder; F34.1 Dysthymic disorder; B18.2 Chronic viral hepatitis C; J32.9 Chronic sinusitis, unspecified
CPT/HCPCS: 81003; 93005; 93010